=== PATIENT | male | born 1975 | race Caucasian/White ===

== ENCOUNTER → 2018-01-15 | Outpatient (CLI) | payer OTHER, MEDICAID, SELFPAY ==
[~2018-01-15] MED LIST: LIDOCAINE 2% MDV 20 ML VIAL As Ordered; ceFAZolin 1GM INJ (J0690 PER 500MG) As Ordered; diphenhydrAMINE 50 MG CAP As Ordered
== END | disposition home or self-care (01) ==
LOC: M IRPRO 09:24
DX: C25.9 Malignant neoplasm of pancreas, unspecified (principal)
CPT/HCPCS: 36561

== ENCOUNTER → 2018-02-10 | Outpatient (REF) | payer OTHER, MEDICAID | END | disposition home or self-care (01) | LOC: M LAB REF 14:28 | DX: C17.0 Malignant neoplasm of duodenum (principal) | CPT/HCPCS: 82378 ==

== ENCOUNTER 2018-03-20 08:16 | Emergency (ER) | payer OTHER ==
[2018-03-20] MEDS: SODIUM CHLORIDE 0.9% INJ 10 ML SYR IV (08:56)
[2018-03-20] MEDS: HEPARIN SOD (PORCINE) 5000 UNITS/ML VIAL IV (10:25)
[2018-03-20] MEDS ORDERED: SODIUM CHLORIDE 0.9% INJ 10 ML SYR IV (11:30)
== END 2018-03-20 11:30 | disposition home or self-care (01) ==
LOC: M ED 08:16
DX: Z71.1 Person with feared health complaint in whom no diagnosis is made (principal); Z85.038 Personal history of other malignant neoplasm of large intestine; Z79.899 Other long term (current) drug therapy; Z79.01 Long term (current) use of anticoagulants; Z79.82 Long term (current) use of aspirin; Z90.49 Acquired absence of other specified parts of digestive tract
CPT/HCPCS: 96374

== ENCOUNTER → 2018-04-07 | Outpatient (REF) | payer OTHER | LOC: M LAB REF 12:59 | DX: C17.0 Malignant neoplasm of duodenum (principal) | CPT/HCPCS: 83735 ==

== ENCOUNTER → 2018-04-21 | Outpatient (REF) | payer OTHER ==
[2018-04-21 14:22] LABS: MAGNESIUM LEVEL 1.7 MG/DL (1.8-2.4)
== END ==
LOC: M LAB REF 13:19
DX: C17.0 Malignant neoplasm of duodenum (principal); T78.40XA Allergy, unspecified, initial encounter
CPT/HCPCS: 83735